=== PATIENT | female | born 1995 | race Caucasian/White ===

== ENCOUNTER 2024-04-30 09:04 | Emergency (ER) | payer MEDICAID, SELFPAY ==
[2024-04-30 09:23] VITALS: BP 131/78; PULSE 70; RESP 18; TEMP 37.2; O2SAT 97; BMI 37.2
--- NOTE | 2024-04-30 09:30 | PD.EDBACK ---
ED Back Injury Pain RME/HPI General Chief Complaint: Back Pain/Injury Stated Complaint: LEFT LOWER BACK PAIN, URINARY FREQUENCY Time Seen by Provider: 04/30/24 09:08 Arrival date/time: 04/30/24 09:04 29-year-old female presents emergency department complains of lower back pain and urinary frequency patient reports no fever nausea or vomiting no flank pain Limitations: no limitations Related Data Home Medications ?Medication ?Instructions ?Recorded ?Confirmed vit no.95-ferrous 1 tab PO QDAY 02/04/22 02/04/22 fumarate 28 mg-folic acid 800 mcg tablet () Previous Rx's ?Medication ?Instructions ?Recorded cyclobenzaprine 10 mg tablet 10 mg PO TID PRN muscle spasm 10 04/30/24 days #30 tab-caps ibuprofen 800 mg tablet 800 mg PO TID PRN pain #30 tabs 04/30/24 Allergies Allergy/AdvReac Type Severity Reaction Status Date / Time No Known Allergies Allergy Verified 06/11/18 17:58 Review of Systems Review of Systems Systems Reviewed: All systems reviewed, normal except as documented Constitutional Constitutional: Reports system reviewed and no additional complaints, except as documented, Denies fever(s) and Denies headache(s) Eyes Eyes: Reports system reviewed and no additional complaints, except as documented and Denies blurry vision ENT Ears, Nose, Mouth, and Throat: Reports system reviewed and no additional complaints, except as documented, Denies headache(s), Denies nasal congestion and Denies nasal discharge Cardiovascular Cardiovascular: Reports system reviewed and no additional complaints, except as documented, Denies chest pain and Denies dyspnea Respiratory Respiratory: Reports system reviewed and no additional complaints, except as documented, Denies chest congestion, Denies cough and Denies dyspnea Gastrointestinal Gastrointestinal: Reports system reviewed and no additional complaints, except as documented and Denies abdominal pain Musculoskeletal Musculoskeletal: Reports system reviewed and no additional complaints, except as documented and Reports back pain Integumentary/Breasts Skin/Breast: Reports system reviewed and no additional complaints, except as documented and Denies rash Neurologic Neurologic: Reports system reviewed and no additional complaints, except as documented, Reports as per HPI and Denies headache(s) Past Medical History Past Medical History NEUROLOGIC: Negative Neurological Disorders CARDIAC: Negative Cardiac Disorders ED Exam General Limitations: Present no limitations General appearance: Present alert and in no apparent distress Head Head exam: Present atraumatic Eye Eye exam: Present normal appearance, PERRL and EOMI ENT ENT exam: Present normal exam, normal oropharynx and mucous membranes moist Neck Neck exam: Present normal inspection, full ROM and trachea midline Chest Chest inspection: Present normal inspection and symmetric chest wall rise Respiratory Respiratory exam: Present normal lung sounds bilaterally Cardiovascular Cardiovascular exam: Present regular rate, normal rhythm and normal heart sounds Abdominal Exam Abdominal exam: Present soft and normal bowel sounds Extremities Exam Extremities exam: Present normal inspection and full ROM Back Exam Back exam: Present normal inspection, full ROM, tenderness, muscle spasm and paraspinal tenderness; Absent CVA tenderness (R), CVA tenderness (L) or vertebral tenderness Neurological Exam Neurological exam: Present alert, oriented X3 and CN II-XII intact Psychiatric Psychiatric exam: Present normal affect and normal mood Skin Skin exam: Present warm, dry, intact and normal color Course Quality Measures none Orders Category Date Time Status HCG Qualitative,Urine Stat Lab 04/30/24 09:00 Completed UA, C/S IF [Urinalysis, C/S if Indicated] Stat Lab 04/30/24 09:00 Completed Ibuprofen Tab [Motrin Tab] Med 04/30/24 09:28 Discontinued 800 mg PO X1 ONE Vital Signs Vital signs: Vital Signs Temperature 99.0 F 04/30/24 09:23 Pulse Rate 70 04/30/24 09:23 Respiratory Rate 18 04/30/24 09:23 Blood Pressure 131/78 H 04/30/24 09:23 Pulse Oximetry (%) 97 04/30/24 09:23 Oxygen Delivery Method Room Air 04/30/24 09:23 O2 saturation 97% room air within normal limits Back Pain / Injury MDM Narrative MDM Narrative:: 29-year-old female presents emergency department complains of lower back pain and urinary frequency patient reports no fever nausea or vomiting no flank pain On exam patient well-appearing patient is not appear ill or toxic patient does not appear in acute distress Urinalysis obtained no evidence of no UTI Symptoms consistent with muscle spasm patient does report pain is worse with movement Patient discharged home with muscle relaxers and pain medication Patient discharged home in no distress to follow-up with primary care doctor in the next 24 to 48 hours and for any worsening symptoms to return to the ER immediately Patient data External records reviewed:: [facility] previous records Clinical information provided by:: patient Social determinants that could affect healthcare access:: none Patient has the following chronic illnesses:: None How is presenting disease/condition affected by chronic disease/condition?: no chronic disease Evaluation data The following diagnostics were reviewed and interpreted by me:: lab results Lab and/or radiology exams considered but not ordered:: Labs obtained Interpretation Summary: Reviewed by me Medications / Prescriptions Medications or Prescriptions considered but not ordered:: Given Medication administrations:: Medication Administration History Discontinued Medications Ibuprofen (Ibuprofen Tab 400 Mg Tablet) 800 mg PO X1 ONE Stop: 04/30/24 09:29 Last Admin: 04/30/24 09:37 Dose: 800 mg Documented By: DD Given Consultations Consultation(s) initiated? (list below): No Diagnosis Differential diagnosis back pain/injury: lumbar radiculopathy, sciatica and strain of lumbar region Most likely diagnosis given after review of the tests above:: Back pain Admission Indicated Admission indicated?: not indicated Admission Request Was there a request for admission?: No Disposition Plan Disposition Plan: Discharge Discharge Attestation Discharge Attestation: The patient and all family members were given an opportunity to ask questions and understood the discharge instructions. Discharge instructions specifically effects, indications for sooner follow up or return to the emergency department, and the expected course of current diagnosis. Patient condition: Stable Discharge Plan Plan Patient Disposition: HOME (Self Care) Disposition Comment: Stable Prescriptions/Referrals Prescriptions/Med Rec: New cyclobenzaprine 10 mg tablet 10 mg PO TID PRN (Reason: muscle spasm) 10 Days Qty: 30 0RF ibuprofen 800 mg tablet 800 mg PO TID PRN (Reason: pain) Qty: 30 0RF No Action PNV [id number]#95-ferrous fumarate-FA [] 28 mg iron- 800 mcg Tablet 1 tab PO QDAY Referrals: Arnulfo Nolasco PA-C [Primary Care Provider] - 05/01/24 Problem List Clinical Impression: Back pain Patient/Caregiver Discharge Instructions Education Materials: Back Safety: Lifting Additional Instructions: Please follow up with your primary care doctor in the next 24-48hrs for any worsening symptoms return here immediately Print Language: Telugu Stand Alone Forms: Deena Award Info., Work/School Release, Patient Portal Info Letter PA/PIPO Supervising Physician DEV/PIPO Supervising Physician: Dr. Allison
[2024-04-30] MEDS: IBUPROFEN TAB 400 MG TABLET 800 MG PO (09:37)
[2024-04-30 10:04] LABS: Collection Type, Urine Clean Catch
[2024-04-30 10:11] LABS: Bilirubin,Urine Negative (Negative); Blood,Urine Negative (Negative); Clarity,Urine Clear (Clear/Hazy); Color,Urine Lt-Yellow (Lt Yel-Yel); Culture Indicated,Urine Not Indicated; Glucose, Urine Negative (Negative); Ketones,Urine Negative (Negative); Leukocyte Esterase,Urine Negative (Negative); Nitrite,Urine Negative (Negative); Protein,Urine Negative (Neg - Trace); RBC,Urine 2 /hpf (0-3); Specific Gravity,Urine 1.014 (1.001-1.035); Squamous Epithelial Cell,Urine 5 /hpf (0-5); Urobilinogen,Urine Negative mg/dL (0.0-1.0); WBC,Urine 1 /hpf (0-5)
[2024-04-30 10:15] LABS: HCG Qualitative,Urine Negative
[2024-04-30 14:52] VITALS: BP 126/70; PULSE 78; RESP 18; TEMP 37.2; O2SAT 98
== END 2024-04-30 14:55 | disposition home or self-care (01) ==
PROVIDERS: Nurse Practitioner Primary Care; Emergency Provider Emergency Medicine; PCP Physician Assistant
DX: M54.50 Low back pain, unspecified (principal)
CPT/HCPCS: 81001; 81025; 99283; A9270